=== PATIENT | female | born 1975 | race Caucasian/White ===

== ENCOUNTER 2016-09-23 20:29 | Emergency (ER) | payer OTHER ==
[2016-09-23 20:53] VITALS: BP 115/90; TEMP 98.1; BMI 29.7
--- NOTE | 2016-09-23 21:14 | PDOC ---
History of Present Illness - General Chief Complaint: Cold Symptoms Stated Complaint: COUGH/FEVER Time Seen by Provider: 09/23/16 21:08 History Source: Patient Exam Limitations: No Limitations - History of Present Illness Initial Comments: CHIEF COMPLAINT: 41 y/o afebrile female with PMH uterine fibroids c/o cough since yesterday. HISTORY OF PRESENT ILLNESS: The patient states she's had a dry cough since yesterday morning. She sometimes coughs so hard she throws up. She also admits to tactile fever last night for which she took tylenol. She admits when she coughs her chest and back hurts. She denies sore throat, runny nose, SOB, abd pain, diarrhea, constipation, leg pain, recent travel, smoking. She admits she is having a total hysterectomy soon and is currently on injections preventing a period. Vital signs on arrival are within normal limits. REVIEW OF SYSTEMS: GENERAL/CONSTITUTIONAL: +tactile fever. No weakness. No weight change. HEAD, EYES, EARS, NOSE AND THROAT: No change in vision. No ear pain or discharge. No sore throat. CARDIOVASCULAR: +post tussive chest pain. No SOB RESPIRATORY: +dry cough with post tussive vomiting. No wheezing or hemoptysis. GASTROINTESTINAL: No abd pain, diarrhea, constipation. GENITOURINARY: No dysuria, frequency, or change in urination. MUSCULOSKELETAL: No joint or muscle swelling or pain. No neck or back pain. SKIN: No rash or easy bruising. NEUROLOGIC: No headache, vertigo, loss of consciousness, or loss of sensation. PHYSICAL EXAM: GENERAL: The patient is awake, alert, and fully oriented, in no acute distress. She has a persistent dry cough. HEAD: Normal with no signs of trauma. ENT: Pupils equal, round and reactive to light, extraocular movements intact, sclera anicteric, conjunctiva clear. Neck supple. LUNGS: Clear to auscultation bilaterally. Normal excursion. No respiratory distress or use of accessory muscles. CV: RRR, S1/S2, no MRG. Cap refill < 2 sec. ABDOMEN: Soft, non-distended, non-tender even to deep palpation, no hepatomegaly or splenomegaly, no masses. EXTREMITIES: Normal range of motion, no edema. NEUROLOGICAL: Normal speech, normal gait. CN II-XII grossly intact. PSYCH: Normal mood, normal affect. SKIN: Warm, dry, normal turgor, no rashes or lesions noted. Past History - Past Medical History Allergies/Adverse Reactions: Allergies Allergy/AdvReac Type Severity Reaction Status Date / Time No Known Allergies Allergy Verified 09/23/16 20:51 Home Medications: Ambulatory Orders Guaifenesin AC [Robitussin AC] 5 ml PO TID #50 ml MDD 20 09/23/16 Prednisone [Deltasone -] 40 mg PO DAILY #8 tablet 09/23/16 Thyroid Disease: No - Psycho/Social/Smoking Cessation Hx Anxiety: No Suicidal Ideation: No Smoking History: Never smoked Have you smoked in the past 12 months: No Information on smoking cessation initiated: No Hx Alcohol Use: No Drug/Substance Use Hx: No Substance Use Type: None *Physical Exam - Vital Signs Last Vital Signs Temp Pulse Resp BP Pulse Ox 98.1 F 96 H 18 115/90 100 09/23/16 20:51 09/23/16 20:51 09/23/16 20:51 09/23/16 20:51 09/23/16 20:51 Medical Decision Making - Medical Decision Making A/P: 41 y/o afebrile female with signs and symptoms of bronchitis. Plan is as follows: 1. Robitussin AC 2. CXR CXR IMPRESSION: No pneumonia The patient states she feels better after robitussin AC and has not been coughing and her heart rate has improved. Will d/c with a dx of bronchitis. Will send rx for 4 day course of prednisone and Robitussin AC for cough. Suggested she take motrin for pain. Also informed her the robitussin may cause drowsiness. The patient was instructed to return to the ER with any worsening or concerning symptoms. The patient verbalizes understanding of all instructions, has no further questions and is awaiting discharge. *DC/Admit/Observation/Transfer Diagnosis at time of Disposition: Cough, Bronchitis - Discharge Dispostion Disposition: HOME Condition at time of disposition: Good - Prescriptions Prescriptions: Prednisone [Deltasone -] 40 mg PO DAILY #8 tablet Guaifenesin AC [Robitussin AC] 5 ml PO TID #50 ml MDD 20 - Patient Instructions Printed Discharge Instructions: DI for Acute Bronchitis, DI for Cough -- Adult Additional Instructions: Discharge Instructions: -Take Motrin if needed for pain with food -2 prescriptions have been sent to your pharmacy; please take as prescribed; the cough medicine may may you drowsy -Return to the ER with any worsening or concerning symptoms. Instrucciones de conor: -[place] Motrin si es necesario para el dolor con la comida -2 recetas boss sido enviadas a garcia farmacia; Por favor tome leonel prescrito; El medicamento para la tos puede causar somnolencia -Vuelva a la zayra de emergencias con cualquier empeoramiento o sntomas relacionados. Print Language: TANZANIAN
[2016-09-23] MEDS ORDERED: guaiFENesin/CODEINE 10 ML UNIT-DOSE CUPS PO ONE (21:18)
[2016-09-23] MEDS ORDERED: guaiFENesin/CODEINE 5 ML UNIT-DOSE CUPS PO ONE ×2 (21:27→21:30)
[2016-09-23 21:47] VITALS: PULSE 80
--- NOTE | 2016-09-24 08:08 | PDOC ---
Patient Follow-up (Call Back) - Post ED Follow - Up Condition at time of discharge: Good Disposition at time of original discharge: HOME Reason for Call Back: Radiology (?nodulular density to posterior aspect of heart as per radiology. Will need rpt CXR and if finding still present, will need chest CT as out-pt Called and l/m for pt to call back)
--- NOTE | 2016-09-25 14:50 | PDOC ---
Patient Follow-up (Call Back) - Post ED Follow - Up Condition at time of discharge: Good Disposition at time of original discharge: HOME Reason for Call Back: Radiology (Called pt back today and left message for pt to call back)
== END 2016-09-23 21:56 | disposition home or self-care (01) ==
LOC: JERFT 20:29
DX: J40 Bronchitis, not specified as acute or chronic (principal)
CPT/HCPCS: 71020-TC; 99281-25

== ENCOUNTER 2016-09-27 19:52 | Emergency (ER) | payer OTHER ==
[2016-09-27 20:03] VITALS: BP 127/65; PULSE 89; TEMP 98.2
[2016-09-27] MEDS ORDERED: guaiFENesin/D-METHORPHAN HB 10 ML UNIT-DOSE CUPS PO ONE (20:55)
--- NOTE | 2016-09-27 20:55 | PDOC ---
History of Present Illness - General Chief Complaint: Respiratory Stated Complaint: COUGH Time Seen by Provider: 09/27/16 20:16 - History of Present Illness Initial Comments: 09/27/16 21:20 CHIEF COMPLAINT: cough HISTORY OF PRESENT ILLNESS: 41 yo F with hx of uterine fibroids presents to [facility] with coughing x 6 days. Patient reports that she was seen here 3 days ago but her coughing has not improved. Per patient chart, patient was discharged with Robitussin AC and Prenisolone. PAST MEDICAL HISTORY: Denies past medical history FAMILY HISTORY: Denies SOCIAL HISTORY: Denies tobacco, alcohol, illicit drug use. SURGICAL HISTORY: Denies ALLERGIES: No known drug allergies REVIEW OF SYSTEMS General/Constitutional: Denies fever or chills. Denies weakness, weight change. HEENT: Denies change in vision. Denies ear pain or discharge. Denies sore throat. Cardiovascular: Denies chest pain or shortness of breath. Respiratory: Cough x 6 days. Denies wheezing, or hemoptysis. Gastrointestinal: Denies nausea, vomiting, diarrhea or constipation. Denies rectal bleeding. PHYSICAL EXAM General Appearance: Well-appearing, appropriately dressed. No apparent distress. HEENT: EOMI, PERRLA, normal ENT inspection, normal voice, TMs normal, pharynx normal. No conjunctival pallor. No photophobia, scleral icterus. Respiratory/Chest: Lungs CTAB. Cardiovascular: RRR. S1, S2. Musculoskeletal/Extremities: Normal inspection. FROM of all extremities, normal capillary refill. Pelvis Stable. No CVA tenderness. No tenderness to extremities, pedal edema, swelling, erythema or deformity. Integumentary: Appropriate color, dry, warm. No cyanosis, erythema, jaundice or rash Neurologic: news reporter II-XII intact. Fully oriented, alert. Appropriate mood/affect. Motor strength 5/5. No appreciable EOM palsy, facial droop or sensory deficit. Past History - Past Medical History Allergies/Adverse Reactions: Allergies Allergy/AdvReac Type Severity Reaction Status Date / Time No Known Allergies Allergy Verified 09/27/16 20:03 Home Medications: Ambulatory Orders Guaifenesin AC [Robitussin AC] 5 ml PO TID #50 ml MDD 20 09/23/16 Prednisone [Deltasone -] 40 mg PO DAILY #8 tablet 09/23/16 Azithromycin [Zithromax Tri-Usama (3 DAYS) -] 500 mg PO DAILY #3 tablet 09/27/16 Thyroid Disease: No - Psycho/Social/Smoking Cessation Hx Anxiety: No Suicidal Ideation: No Smoking History: Never smoked Have you smoked in the past 12 months: No Hx Alcohol Use: No Drug/Substance Use Hx: No Substance Use Type: None *Physical Exam - Vital Signs Last Vital Signs Temp Pulse Resp BP Pulse Ox 98.2 F 89 18 127/65 100 09/27/16 20:00 09/27/16 20:00 09/27/16 20:00 09/27/16 20:00 09/27/16 20:00 ED Treatment Course - RADIOLOGY Radiology Studies Ordered: Category Date Time Status CHEST PA & LAT [RAD] Stat Radiology 09/27/16 20:21 Ordered Medical Decision Making - Medical Decision Making 09/27/16 21:44 41 yo F with hx of uterine fibroids presents to fast track with persistent coughing x 6 days. Patient was called twice with no response regarding positive nodule finding on CXR from last visit. Repeat chest x-ray showed no evidence of nodule. Outpatient CT is recommended for further evaluation of possibe lung nodules. Due to prolonged course of persistent coughing, will treat with antibiotics. -Azithromycin sent to pharm Advised patient to f/u with pulmonology and for CT. Advised patient to take medications as prescribed and of signs and symptoms for return to ER; patient verbalized understanding and agrees to plan. *DC/Admit/Observation/Transfer Diagnosis at time of Disposition: Bronchitis - Discharge Dispostion Disposition: HOME Condition at time of disposition: Stable Admit: No - Prescriptions Prescriptions: Azithromycin [Zithromax Tri-Usama (3 DAYS) -] 500 mg PO DAILY #3 tablet - Referrals Referrals: Aaron Deleon MD, [Staff Physician] - - Patient Instructions Printed Discharge Instructions: DI for Acute Bronchitis Additional Instructions: Please take antibiotics as prescribed and complete the entire course of antibiotics. Please continue taking the other medications that were prescribed to your previously. You must follow up with pulmonology for a CT scan this week. If you develop fever that does not go away with Motrin, persistent vomiting, diarrhea, or any new or worsening symptoms, please return to the ER. Por favor, tome los antibiticos segn lo prescrito y complete el curso completo de los antibiticos. Por favor contine tomando los otros medicamentos que le fueron recetados previamente. Debe hacer un seguimiento de la neumologa para luis enrique tomografa computarizada esta semana. Si usted desarrolla fiebre que no se daisy con Motrin, vmitos persistentes, diarrea, o cualquier nuevo o empeoramiento de los sntomas, por favor regrese a la zayra de emergencias.
[2016-09-27] MEDS ORDERED: guaiFENesin/D-METHORPHAN HB 10 ML UNIT-DOSE CUPS ONE (20:58)
== END 2016-09-27 22:14 | disposition home or self-care (01) ==
LOC: JERFT 19:52
DX: J40 Bronchitis, not specified as acute or chronic (principal)
CPT/HCPCS: 71020-TC; 99281-25

== ENCOUNTER 2017-05-19 11:23 | Emergency (ER) | payer OTHER ==
[2017-05-19 11:55] VITALS: BP 144/80; BMI 31.8
[2017-05-19] MEDS ORDERED: IBUPROFEN 400 MG TABLET (FP) PO ONE ×2 (12:23→12:32)
--- NOTE | 2017-05-19 12:23 | PDOC ---
History of Present Illness - General Chief Complaint: Sore Throat Stated Complaint: COLD SYMPTOMS Time Seen by Provider: 05/19/17 12:06 History Source: Patient Exam Limitations: No Limitations - History of Present Illness Initial Comments: CHIEF COMPLAINT: 41 y/o afebrile female c/o dry cough and sore throat x 5 days. HISTORY OF PRESENT ILLNESS: The patient states she hasn't been able to sleep because of the cough. She denies fever, chills, earache, runny nose, n/v/d, CP , SOB, abd pain. She has been taking dayquil for her symptoms. Past History - Past Medical History Allergies/Adverse Reactions: Allergies Allergy/AdvReac Type Severity Reaction Status Date / Time No Known Allergies Allergy Verified 05/19/17 11:51 Home Medications: Ambulatory Orders Guaifenesin [Adult Tussin Chest Congestion] 100 mg PO TID #100 ml 05/19/17 COPD: No Thyroid Disease: No - Immunization History Immunization Up to Date: Yes - Suicide/Smoking/Psychosocial Hx Smoking History: Never smoked Have you smoked in the past 12 months: No Hx Alcohol Use: No Drug/Substance Use Hx: No Substance Use Type: None Review of Systems - Review of Systems Able to Perform ROS?: Yes Constitutional: No: Chills, Fever HEENTM: Yes: Throat Pain, Difficulty Swallowing. No: Ear Pain, Ear Discharge, Nose Pain, Nose Congestion, Nose Bleeding, Throat Swelling, Mouth Pain Respiratory: Yes: Cough (dry cough). No: Shortness of Breath, Wheezing Cardiac (ROS): No: Chest Pain ABD/GI: No: Diarrhea, Nausea, Vomiting *Physical Exam - Vital Signs Last Vital Signs Temp Pulse Resp BP Pulse Ox 98.0 F 79 18 144/80 98 05/19/17 11:51 05/19/17 11:51 05/19/17 11:51 05/19/17 11:51 05/19/17 11:51 - Physical Exam Comments: 41 y/o afebrile female in NAD or obvious discomfort with persistent dry cough. General Appearance: Yes: Nourished, Appropriately Dressed, Obese HEENT: positive: EOMI, MICHELLE, Normal Voice, Pharyngeal Erythema, Tonsillar Erythema (1+ erythematous tonsils), Other (No trismus. Uvula midline. No soft/ hard palate deformities. No petechia.). negative: Muffled/Hoarse voice, Tonsillar Exudate, Nasal Congestion, Rhinorrhea Neck: positive: Lymphadenopathy (R), Lymphadenopathy (L) Respiratory/Chest: positive: Lungs Clear. negative: Respiratory Distress, Rales , Wheezing Cardiovascular: positive: Regular Rhythm, Regular Rate Medical Decision Making - Medical Decision Making A/P: 41 y/o female with dry cough and sore throat x 5 days. Patient is otherwise well appearing. Plan is as follows: 1. Rapid strep 2. PO motrin Rapid strep - negative will send rx for cough medicine Suggested supportive care measures and cough drops. Instructed her to return to the ER with any worsening or concerning symptoms. The patient verbalizes understanding of all instructions, has no further questions and is awaiting discharge. *DC/Admit/Observation/Transfer Diagnosis at time of Disposition: Cough, Common cold - Discharge Dispostion Disposition: HOME Condition at time of disposition: Good - Prescriptions Prescriptions: Guaifenesin [Adult Tussin Chest Congestion] 100 mg PO TID #100 ml - Referrals Referrals: Hemalatha Schultz [Primary Care Provider] - Call tomorrow - Patient Instructions Printed Discharge Instructions: DI for Cough -- Adult, DI for Common Cold Additional Instructions: Discharge Instructions: -Take cough medicine as prescribed -Take tylenol or motrin for throat pain -Gargle with warm salt water and eat soft/cold foods to help with throat pain -Sit up to sleep to help with cough -Use steam heat to help with cough -Follow up with your doctor within 1 week -Return to the ER with any worsening or concerning symptoms Instrucciones de descarga: -Kat medicina para la tos segn lo prescrito -[place] tylenol o motrin para el dolor de garg[place] -[place] con agua salada tibia y coma alimentos blandos / fros para aliviar el dolor de garganta. -Sintate a dormir para ayudar con la tos -Use calor de vapor para ayudar con la tos -Siga con garcia doctor dentro de 1 semana -Volver a la zayra de urgencias con cualquier empeoramiento o sntomas Print Language: JAPANESE - Post Discharge Activity
[2017-05-19 13:16] VITALS: PULSE 72; TEMP 99.3
== END 2017-05-19 13:24 | disposition home or self-care (01) ==
LOC: JERFT 11:23
DX: J00 Acute nasopharyngitis [common cold] (principal)
CPT/HCPCS: 87070; 87430; 99281-25

== ENCOUNTER 2017-05-27 22:42 | Observation (INO) | payer OTHER ==
[2017-05-27] MEDS ORDERED: SODIUM CHLORIDE 1,000 ML IV STA (23:44)
--- NOTE | 2017-05-27 23:54 | PDOC ---
History of Present Illness - General History Source: Patient Exam Limitations: No Limitations - History of Present Illness Initial Comments: 05/27/17 23:55 The patient is a 41 year old anxious, disheveled and amharic speaking female, with no significant past medical history who presents to the emergency department with possible overdose today around 9:00pm. The patients brother reports finding the patient on the floor crying around 10:00pm after drinking half a bottle of [facility] Cold + Flu, which contained acetaminophen and dextromethorphan. Brother is unsure of exact amount. Patient endorses in addition having about 6 glasses of whisky earlier tonight. Brother reports the patients sister recently passing away this past Sunday. She denies any complaints of pain upon ED arrival. She denies recent fevers, chills, headache or dizziness. She denies recent nausea, vomit, diarrhea or constipation. She denies recent dysuria, frequency, urgency or hematuria. She denies recent chest pain or shortness of breath. Allergies: NKA Past surgical history: None reported. Social history: Nonsmoker. Current drinker. <Phill Hennessy - Last Filed: 05/27/17 23:55> <Adrienne Bailon - Last Filed: 05/28/17 01:42> - General Chief Complaint: Suicidal Stated Complaint: OVERDOSE Time Seen by Provider: 05/27/17 23:30 Past History <Phill Hennessy - Last Filed: 05/27/17 23:55> - Past Medical History COPD: No Thyroid Disease: No - Immunization History Immunization Up to Date: Yes - Suicide/Smoking/Psychosocial Hx Smoking History: Never smoked Have you smoked in the past 12 months: No Information on smoking cessation initiated: No Hx Alcohol Use: No Drug/Substance Use Hx: No Substance Use Type: None <Adrienne Bailon - Last Filed: 05/28/17 01:42> - Past Medical History Allergies/Adverse Reactions: Allergies Allergy/AdvReac Type Severity Reaction Status Date / Time No Known Allergies Allergy Verified 05/19/17 11:51 Home Medications: Ambulatory Orders Guaifenesin [Adult Tussin Chest Congestion] 100 mg PO TID #100 ml 05/19/17 Review of Systems - Review of Systems Able to Perform ROS?: Yes Comments:: 05/27/17 23:55 GENERAL/CONSTITUTIONAL: No fever or chills. No weakness. HEAD, EYES, EARS, NOSE AND THROAT: No change in vision. No ear pain or discharge. No sore throat. CARDIOVASCULAR: No chest pain or shortness of breath. RESPIRATORY: No cough, wheezing, or hemoptysis. GASTROINTESTINAL: No nausea, vomiting, diarrhea or constipation. GENITOURINARY: No dysuria, frequency, or change in urination. MUSCULOSKELETAL: No joint or muscle swelling or pain. No neck or back pain. SKIN: No rash NEUROLOGIC: No headache, vertigo, loss of consciousness, or change in strength/ sensation. PSCYH: +suicide attempt. ENDOCRINE: No increased thirst. No abnormal weight change. HEMATOLOGIC/LYMPHATIC: No anemia, easy bleeding, or history of blood clots. ALLERGIC/IMMUNOLOGIC: No hives or skin allergy. <Phill Hennessy - Last Filed: 05/27/17 23:55> *Physical Exam - Vital Signs Last Vital Signs Temp Pulse Resp BP Pulse Ox 97 F L 114 H 20 181/106 95 05/27/17 22:53 05/27/17 22:53 05/27/17 22:53 05/27/17 22:53 05/27/17 22:53 - Physical Exam Comments: 05/27/17 23:55 GENERAL: Awake, alert, and fully oriented, disheveled and anxious appearing. Alcohol on breath. HEAD: No signs of trauma EYES: PERRLA, EOMI, sclera anicteric, conjunctiva clear ENT: Auricles normal inspection, hearing grossly normal, nares patent, oropharynx clear without exudates. Moist mucosa NECK: Normal ROM, supple, no lymphadenopathy, JVD, or masses LUNGS: Breath sounds equal, clear to auscultation bilaterally. No wheezes, and no crackles HEART: +Tachycardic. Regular rate and rhythm, normal S1 and S2, no murmurs, rubs or gallops ABDOMEN: Protuberant soft belly, nontender, normoactive bowel sounds. No guarding, no rebound. No masses EXTREMITIES: Normal range of motion, no edema. No clubbing or cyanosis. No cords, erythema, or tenderness NEUROLOGICAL: Cranial nerves II through XII grossly intact. Normal speech, normal gait SKIN: Warm, Dry, normal turgor, no rashes or lesions noted. <Phill Hennessy - Last Filed: 05/27/17 23:55> - Vital Signs Last Vital Signs Temp Pulse Resp BP Pulse Ox 97 F L 114 H 20 181/106 95 05/27/17 22:53 05/27/17 22:53 05/27/17 22:53 05/27/17 22:53 05/27/17 22:53 <Adrienne Bailon - Last Filed: 05/28/17 01:42> ED Treatment Course - LABORATORY CBC & Chemistry Diagram: 05/28/17 00:06 05/28/17 00:06 <Adrienne Bailon - Last Filed: 05/28/17 01:42> Medical Decision Making - Medical Decision Making 05/28/17 01:24 41-year-old female is grieving the of her sister last Sunday and drank large amounts of whiskey and drank at least half a bottle of cold and flu solution containing acetaminophen, dextromethorphan, and doxylamine Spoke with poison control and there is concern for the following -Anticholinergic effects - rhabdomyolysis -Seizure activity -hallucinations - EKG changes QRS prolongation 05/28/17 01:37 first tylenol level is negative,salicylates negative, alcohol is 291 pt denies any actual plan to end her life, she denies that she wants to but she has not been able to sleep for 5 nights and states she just wants to not feel the pain of losing her sister and wants to be able to sleep pt admited to OBS telemetry <Adrienne Bailon - Last Filed: 05/28/17 01:42> *DC/Admit/Observation/Transfer - Attestations Scribe Attestion: 05/27/17 23:55 Documentation prepared by Phill Hennessy, acting as medical chemist for Adrienne Bailon MD/. <Phill Hennessy - Last Filed: 05/27/17 23:55> - Discharge Dispostion Admit: Yes <Adrienne Bailon - Last Filed: 05/28/17 01:42> Diagnosis at time of Disposition: Overdose Qualifiers: Encounter type: initial encounter Injury intent: undetermined intent Qualified Code(s): T50.904A - Poisoning by unspecified drugs, medicaments and biological substances, undetermined, initial encounter Alcohol intoxication Qualifiers: Complication of substance-induced condition: uncomplicated Qualified Code(s): F10.920 - Alcohol use, unspecified with intoxication, uncomplicated - Referrals - Patient Instructions - Post Discharge Activity Forms/Work/School Notes: My Personal Safety Plan
[2017-05-28 00:27] LABS: BASO % 1.3 % (0-2.0); EOS % 1.5 % (0-4.5); HEMATOCRIT 41.2 % (32.4-45.2); HEMOGLOBIN 13.5 GM/dL (10.7-15.3); LYMPH % 14.2 % (8-40); MCH 28.8 pg (25.7-33.7); MCHC 32.7 g/dl (32.0-36.0); MEAN CELL VOLUME 88.2 fl (80-96); MEAN PLT VOLUME 9.7 fl (7.5-11.1); MONO % 3.3 % (3.8-10.2); NEUT % 79.7 % (42.8-82.8); PLATELET COUNT 272 K/MM3 (134-434); RBC 4.67 M/mm3 (3.60-5.2); WHITE BLOOD COUNT 7.8 K/mm3 (4.0-10.0)
[2017-05-28 00:29] LABS: ADD RBC MORPHOLOGY YES; ANISOCYTOSIS 3+
[2017-05-28 00:42] LABS: INR 1.07 (0.82-1.09); PROTHROMBIN TIME (PATIENT) 12.1 SEC (9.98-11.88)
[2017-05-28 00:46] LABS: ALCOHOL 292.6 mg/dl (0-5)
[2017-05-28 00:48] LABS: ALK PHOS 337 U/L (45-117); ANION GAP 15 (8-16); BILIRUBIN,TOTAL 0.2 mg/dL (0.2-1.0); BLOOD UREA NITROGEN 4 mg/dL (7-18); CHLORIDE 103 mmol/L (98-107); CO2 21 mmol/L (21-32); CREATININE 0.6 mg/dL (0.55-1.02); GLUCOSE,RANDOM 116 mg/dL (74-106); POTASSIUM 3.9 mmol/L (3.5-5.1); SGOT/AST 34 U/L (15-37); SGPT/ALT 69 U/L (12-78); SODIUM 139 mmol/L (136-145)
[2017-05-28 01:05] LABS: ACETAMINOPHEN < 11 ug/ml (10.0-30.0); SALICYLATE < 4.0 mg/dl (0.0-30.0)
--- NOTE | 2017-05-28 02:45 | HP ---
CHIEF COMPLAINT: possible overdose PCP: Antoine HISTORY OF PRESENT ILLNESS: This is a 41 year old female with no significant medical history who presented to the ED from home with brother who reports that patient took an unknown amount of [facility] brand cold and flu medicine. Pt states that she only took 2 medicine cups. The bottle is about 3/4 empty. The patient reports that she has had a cough for about 3 weeks and has had the bottle for a "while" and she has been taking it. She also drank about 6 glasses of whiskey. Pt denies attempting to harm herself, but states she "just wanted to be able to sleep." Pt's 36 year old sister last week suddenly and she has been anxious and sleeping poorly since. She states that she wants to go home, but is willing to stay until morning. ER course was notable for: (1) tylenol and ASA levels low (2) ETOH level 292 Recent Travel: pt denies PAST MEDICAL HISTORY: none known PAST SURGICAL HISTORY: none known Social History: Smoking: pt denies Alcohol: not a habitual drinker, has been drinking more since her sister's Drugs: pt denies Family History: sister age 36, PE Allergies No Known Allergies Allergy (Verified 05/19/17 11:51) HOME MEDICATIONS: 3 Medication Instructions Recorded Guaifenesin [Adult Tussin Chest 100 mg PO TID #100 ml 05/19/17 Congestion] REVIEW OF SYSTEMS CONSTITUTIONAL: Absent: fever, chills, diaphoresis, generalized weakness, malaise, loss of appetite, weight change HEENT: Absent: rhinorrhea, nasal congestion, throat pain, throat swelling, difficulty swallowing, mouth swelling, ear pain, eye pain, visual changes CARDIOVASCULAR: Absent: chest pain, syncope, palpitations, irregular heart rate, lightheadedness , peripheral edema RESPIRATORY: Present: cough Absent: shortness of breath, dyspnea with exertion, orthopnea, wheezing, stridor , hemoptysis GASTROINTESTINAL: Absent: abdominal pain, abdominal distension, nausea, vomiting, diarrhea, constipation, melena, hematochezia GENITOURINARY: Absent: dysuria, frequency, urgency, hesitancy, hematuria, flank pain, genital pain MUSCULOSKELETAL: Absent: myalgia, arthralgia, joint swelling, back pain, neck pain SKIN: Absent: rash, itching, pallor HEMATOLOGIC/IMMUNOLOGIC: Absent: easy bleeding, easy bruising, lymphadenopathy, frequent infections ENDOCRINE: Absent: unexplained weight gain, unexplained weight loss, heat intolerance, cold intolerance NEUROLOGIC: Absent: headache, focal weakness or paresthesias, dizziness, unsteady gait, seizure, mental status changes, bladder or bowel incontinence PSYCHIATRIC: Present: anxiety Absent: depression, suicidal or homicidal ideation, hallucinations. PHYSICAL EXAMINATION Vital Signs - 24 hr 3 05/27/17 05/28/17 22:53 01:05 Temperature 97 F L Pulse Rate 114 H Pulse Rate [ 90 Right Apical] Respiratory 20 18 Rate Blood Pressure 181/106 Blood Pressure 141/75 [Right Arm] O2 Sat by Pulse 95 97 Oximetry (%) GENERAL: Awake, alert, and fully oriented, in no acute distress. HEAD: Normal with no signs of trauma. EYES: Pupils equal, round and reactive to light, extraocular movements intact, sclera anicteric, conjunctiva clear. No lid lag. EARS, NOSE, THROAT: Ears normal, nares patent, oropharynx clear without exudates. Moist mucous membranes. NECK: Normal range of motion, supple without lymphadenopathy, JVD, or masses. LUNGS: Breath sounds equal, clear to auscultation bilaterally. No wheezes, and no crackles. No accessory muscle use. HEART: Regular rate and rhythm, normal S1 and S2 without murmur, rub or gallop. ABDOMEN: Soft, nontender, not distended, normoactive bowel sounds, no guarding, no rebound, no masses. No hepatomegaly or splenomegaly. MUSCULOSKELETAL: Normal range of motion at all joints. No bony deformities or tenderness. No CVA tenderness. UPPER EXTREMITIES: 2+ pulses, warm, well-perfused. No cyanosis. No clubbing. No peripheral edema. LOWER EXTREMITIES: 2+ pulses, warm, well-perfused. No calf tenderness. No peripheral edema. NEUROLOGICAL: Cranial nerves II-XII intact. Normal speech. Gait not observed. PSYCHIATRIC: Cooperative. Good eye contact. Appropriate mood and affect. SKIN: Warm, dry, normal turgor, no rashes or lesions noted, normal capillary refill. Laboratory Results - last 24 hr 3 05/28/17 05/28/17 05/28/17 00:06 00:06 00:06 WBC 7.8 RBC 4.67 Hgb 13.5 Hct 41.2 MCV 88.2 MCH 28.8 MCHC 32.7 RDW 25.0 H Plt Count 272 MPV 9.7 Neutrophils % 79.7 Lymphocytes % 14.2 Monocytes % 3.3 L Eosinophils % 1.5 Basophils % 1.3 Anisocytosis 3+ PT with INR 12.10 H INR 1.07 Sodium 139 Potassium 3.9 Chloride 103 Carbon Dioxide 21 Anion Gap 15 BUN 4 L Creatinine 0.6 Creat Clearance w eGFR > 60 Random Glucose 116 H Calcium 9.0 Total Bilirubin 0.2 AST 34 ALT 69 Alkaline Phosphatase 337 H Creatine Kinase 76 Troponin I < 0.02 Total Protein 8.0 Albumin 4.0 Serum , Qual Negative Salicylates < 4.0 Acetaminophen < 11 Alcohol, Quantitative 292.6 H* ECG NSR Vent rate 94, QTC 475 low voltage QRS ASSESSMENT/PLAN: 41yF with no past medical history who presented to the ED with alcohol intoxication and possible nyquil overdose. Alcohol intoxication - ETOH level 292 - received 1L NS in ED, no slurred speech presently, no other s/s intoxication noted, but pt did not ambulate in my presence - cont to monitor Possible nyquil OD - tylenol level Less than 11, unlikely took enough for adverse effect - tylenol level repeated, called lab for results, test had been cancelled as tech believed it to be a duplicate order, will run test now. - monitor on tele - pt states she was not trying to harm self, denies suicidal ideation. - not intentional OD DVT PPX - low risk FEN - tolerating po, defer IVF - BMP in am - regular diet Dispo: pt requires further monitoring; admit for observation. Possible DC in am after reeval. Visit type - Emergency Visit Emergency Visit: Yes ED Registration Date: 05/27/17 Care time: The patient presented to the Emergency Department on the above date and was hospitalized for further evaluation of their emergent condition. - New Patient This patient is new to me today: Yes Date on this admission: 05/28/17 - Critical Care Critical Care patient: No Hospitalist Screening - Colonoscopy Questionnaire Colonoscopy Questionnaire: Colonoscopy Questionnaire - Patient: 50 - 75 years old and never had a screening colonoscopy: No History of colon or rectal polyps, or CA: No History of IBD, Crohn's disease or UC: No History of abdominal radiation therapy as a child: No - Relative: 1 with colon or rectal CA, or polyps at age 60 or younger: Unknown Colon or rectal CA diagnosed at age 45 or younger: Unknown Multiple relatives with colon or rectal CA: Unknown - Outcome: Screening Result: Negative Screen
[2017-05-28 06:03] LABS: URINE APPEARANCE CLEAR; URINE BILIRUBIN NEGATIVE (NEGATIVE); URINE BLOOD 3+ (NEGATIVE); URINE COLOR AMBER; URINE GLUCOSE (UA) NEGATIVE (NEGATIVE); URINE KETONE NEGATIVE (NEGATIVE); URINE LEUK ESTERASE NEGATIVE (NEGATIVE); URINE NITRITE NEGATIVE (NEGATIVE); URINE UROBILINOGEN NEGATIVE mg/dL (0.2-1.0)
[2017-05-28 06:05] LABS: URINE PROTEIN 1+ (NEGATIVE)
[2017-05-28 06:05] LABS: COCAINE, UR NEGATIVE ng/ml (CUTOFF=300); METHADONE, UR NEGATIVE ng/ml (CUTOFF=300); OPIATES, URI NEGATIVE ng/ml (CUTOFF=300); PHENCYCLIDINE,URINE NEGATIVE ng/ml (CUTOFF=25); URINE AMPHETAMINES NEGATIVE ng/ml (CUTOFF=500); URINE BARBITURATES NEGATIVE ng/ml (CUTOFF=200); URINE BENZODIAZEPINES NEGATIVE ng/ml (CUTOFF=200)
[2017-05-28 06:06] LABS: BASO % 0.9 % (0-2.0); EOS % 0.8 % (0-4.5); HEMOGLOBIN 11.8 GM/dL (10.7-15.3); LYMPH % 22.1 % (8-40); MCH 28.9 pg (25.7-33.7); MCHC 32.7 g/dl (32.0-36.0); MEAN CELL VOLUME 88.5 fl (80-96); MEAN PLT VOLUME 9.6 fl (7.5-11.1); MONO % 3.9 % (3.8-10.2); NEUT % 72.3 % (42.8-82.8); PLATELET COUNT 271 K/MM3 (134-434); RBC 4.07 M/mm3 (3.60-5.2); RDW 25.2 % (11.6-15.6); WHITE BLOOD COUNT 6.6 K/mm3 (4.0-10.0)
[2017-05-28 06:11] LABS: EPI CELLS RARE /HPF (FEW); URINE BACTERIA RARE /hpf (NONE SEEN); URINE MUCUS RARE
[2017-05-28 06:30] LABS: ANION GAP 13 (8-16); BLOOD UREA NITROGEN 3 mg/dL (7-18); CALCIUM 8.3 mg/dL (8.5-10.1); CHLORIDE 107 mmol/L (98-107); CO2 22 mmol/L (21-32); CREATININE 0.5 mg/dL (0.55-1.02); GLUCOSE,RANDOM 92 mg/dL (74-106); MAGNESIUM 2.3 mg/dL (1.8-2.4); POTASSIUM 3.6 mmol/L (3.5-5.1); SODIUM 142 mmol/L (136-145)
[2017-05-28 07:01] VITALS: BMI 32.3
[2017-05-28 07:30] LABS: ALBUMIN 3.6 g/dl (3.4-5.0); ALK PHOS 264 U/L (45-117); BILIRUBIN,DIRECT < 0.2 mg/dL (0.0-0.2); BILIRUBIN,TOTAL 0.2 mg/dL (0.2-1.0); SGOT/AST 27 U/L (15-37); SGPT/ALT 55 U/L (12-78); TOT PROT 6.7 g/dl (6.4-8.2)
--- NOTE | 2017-05-28 09:29 | PN ---
Progress Note, Physician - Objective Vital Signs: Vital Signs Temperature 98.5 F 05/28/17 06:40 Pulse Rate 77 05/28/17 06:40 Respiratory Rate 18 05/28/17 06:40 Blood Pressure 133/70 05/28/17 06:40 O2 Sat by Pulse Oximetry (%) 95 05/28/17 06:40 Labs: CBC, BMP 05/28/17 06:00 05/28/17 06:00 INR, PTT INR 1.07 (0.82-1.09) 05/28/17 00:06 Problem List - Problems (1) Abnormal CXR Assessment/Plan: REPEAT CXR EKG Code(s): R93.8 - ABNORMAL FINDINGS ON DIAGNOSTIC IMAGING OF BODY STRUCTURES (2) Alcohol intoxication Assessment/Plan: Alcohol intoxication - ETOH level 292 - received 1L NS in ED, no slurred speech presently, no other s/s intoxication noted, but pt did not ambulate in my presence - cont to monitor DVT PPX - low risk Code(s): F10.929 - ALCOHOL USE, UNSPECIFIED WITH INTOXICATION, UNSPECIFIED Qualifiers: Complication of substance-induced condition: uncomplicated Qualified Code(s ): F10.920 - Alcohol use, unspecified with intoxication, uncomplicated (3) Cough Assessment/Plan: PULMONARY CONSULT Code(s): R05 - COUGH (4) Overdose Assessment/Plan: Possible nyquil OD - tylenol level Less than 11, unlikely took enough for adverse effect - tylenol level repeated--LESS THAN 11 - pt states she was not trying to harm self, denies suicidal ideation. - not intentional OD Code(s): T50.901A - POISONING BY UNSP DRUG/MEDS/BIOL SUBST, ACCIDENTAL, INIT Qualifiers: Encounter type: initial encounter Injury intent: undetermined intent Qualified Code(s): T50.904A - Poisoning by unspecified drugs, medicaments and biological substances, undetermined, initial encounter
[2017-05-28 09:39] LABS: ANION GAP 14 (8-16); BLOOD UREA NITROGEN 4 mg/dL (7-18); CALCIUM 7.9 mg/dL (8.5-10.1); CHLORIDE 109 mmol/L (98-107); CO2 19 mmol/L (21-32); CREATININE 0.5 mg/dL (0.55-1.02); GLUCOSE,RANDOM 91 mg/dL (74-106); POTASSIUM 3.7 mmol/L (3.5-5.1); SODIUM 142 mmol/L (136-145)
[2017-05-28 10:05] VITALS: BP 139/78; PULSE 84; TEMP 98.3
--- NOTE | 2017-05-28 16:57 | EKG ---
Test Reason : Blood Pressure : / mmHG Vent. Rate : 081 BPM Atrial Rate : 081 BPM P-R Int : 130 ms QRS Dur : 092 ms QT Int : 388 ms P-R-T Axes : 001 041 001 degrees QTc Int : 450 ms NORMAL SINUS RHYTHM LOW VOLTAGE QRS CANNOT RULE OUT ANTERIOR INFARCT (CITED ON OR BEFORE 28-MAY-2017) ABNORMAL ECG WHEN COMPARED WITH ECG OF 28-MAY-2017 08:28, NO SIGNIFICANT CHANGE WAS FOUND Confirmed by YOLI MATOS MD ([id number]) on 05/28/2017 4:57:37 PM Referred By: Confirmed By:YOLI MATOS MD
--- NOTE | 2017-05-28 16:58 | EKG ---
Test Reason : Blood Pressure : / mmHG Vent. Rate : 083 BPM Atrial Rate : 083 BPM P-R Int : 120 ms QRS Dur : 090 ms QT Int : 382 ms P-R-T Axes : 027 026 002 degrees QTc Int : 448 ms NORMAL SINUS RHYTHM CANNOT RULE OUT ANTERIOR INFARCT , AGE UNDETERMINED ABNORMAL ECG WHEN COMPARED WITH ECG OF 28-MAY-2017 01:32, NO SIGNIFICANT CHANGE WAS FOUND Confirmed by YOLI MATOS MD ([id number]) on 05/28/2017 4:58:32 PM Referred By: Confirmed By:YOLI MATOS MD
--- NOTE | 2017-05-28 17:01 | EKG ---
Test Reason : Blood Pressure : / mmHG Vent. Rate : 094 BPM Atrial Rate : 094 BPM P-R Int : 142 ms QRS Dur : 086 ms QT Int : 380 ms P-R-T Axes : 047 031 006 degrees QTc Int : 475 ms NORMAL SINUS RHYTHM LOW VOLTAGE QRS BORDERLINE ECG NO PREVIOUS ECGS AVAILABLE Confirmed by YOLI MATOS MD ([id number]) on 05/28/2017 5:01:24 PM Referred By: Confirmed By:YOLI MATOS MD
== END 2017-05-28 17:23 | disposition home or self-care (01) ==
LOC: JER 22:42 → JERBED 05-28 01:42 → J4S 05-28 07:06
PROVIDERS: ADMIT Internal Medicine; ATTEND Family Medicine
PROC: 3E0337Z Introduction of Electrolytic and Water Balance Substance into Peripheral Vein, Percutaneous Approach (ICD-10-PCS; principal; 2017-05-28)
DX: T50.994A Poisoning by other drugs, medicaments and biological substances, undetermined, initial encounter (principal); F10.920 Alcohol use, unspecified with intoxication, uncomplicated; Y92.9 Unspecified place or not applicable; R93.8 Abnormal findings on diagnostic imaging of other specified body structures; R05 Cough
CPT/HCPCS: 36415; 71045-TC-FY; 71046-TC-FY; 80048; 80053; 80076; 80307; 81003; 81015; 82550; 83735; 84100; 84484; 84703; 85025; 85610; 93005; 93010; 96360; 99285-25; G0378

== ENCOUNTER 2019-04-12 00:52 | Emergency (ER) | payer OTHER ==
[2019-04-12 02:31] VITALS: TEMP 98.4; BMI 30.8
[2019-04-12] MEDS ORDERED: AZITHROMYCIN 500 MG TABLET PO ONE (03:29)
[2019-04-12] MEDS ORDERED: ACETAMINOPHEN 325 MG TABLET (FP) PO ONE (03:30)
--- NOTE | 2019-04-12 03:31 | PDOC ---
Attending Attestation - Resident Resident Name: Sabas Gonzáles - ED Attending Attestation I have performed the following: I have examined & evaluated the patient, The case was reviewed & discussed with the resident, I agree w/resident's findings & plan - HPI HPI: 04/12/19 06:43 Pt comes with cough and cold x 3 weeks. 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 She has no known ill contacts. She has been taking OTC meds with no improvement. - Physicial Exam PE: 04/12/19 06:44 Coarse breath sounds bilat Pt has a pulsox of 99% on RA even tho she is walking about. Rest of exam normal Agree with resident exam. - Medical Decision Making 04/12/19 03:40 Impression: atypical pneumonia 04/12/19 06:44 Flu negative 04/12/19 06:46 We will treat with zpak and tylenol. Pt can follow with her PMD
[2019-04-12] MEDS ORDERED: AZITHROMYCIN 250 MG TABLET ONE (03:35)
[2019-04-12] MEDS ORDERED: ACETAMINOPHEN 325 MG TABLET (FP) ONE (03:35)
--- NOTE | 2019-04-12 03:36 | PDOC ---
History of Present Illness - General Chief Complaint: Cold Symptoms Stated Complaint: COUGH Time Seen by Provider: 04/12/19 02:32 History Source: Patient Exam Limitations: No Limitations - History of Present Illness Initial Comments: 04/12/19 03:35 43F with no PMH who presents to the ER with complaints of 3 weeks of cough. She states that she's had 3 weeks of nonproductive cough with fever and chills. She admits to having pneumonia 2 years ago and states that this "feels just like it ". She denies CP, SOB, nausea, vomiting, abdominal pain, myalgias, dysuria. Past History - Past Medical History Allergies/Adverse Reactions: Allergies Allergy/AdvReac Type Severity Reaction Status Date / Time No Known Allergies Allergy Verified 05/19/17 11:51 Home Medications: Ambulatory Orders Guaifenesin [Adult Tussin Chest Congestion] 100 mg PO TID #100 ml 05/19/17 Azithromycin [Zithromax 250mg Tablets -] 250 mg PO UTDICT #6 tab 04/12/19 Anemia: Yes Asthma: No Cancer: No Cardiac Disorders: No CVA: No COPD: No DVT: No Dementia: No Diabetes: No Dialysis: No GI Disorders: No Disorders: No HTN: No Hypercholesterolemia: No Kidney Stones: No Liver Disease: No Psychiatric Problems: No Seizures: No Thyroid Disease: No Lung CA: No - Immunization History Immunization Up to Date: Yes - Psycho Social/Smoking Cessation Hx Smoking History: Never smoked Have you smoked in the past 12 months: No Information on smoking cessation initiated: No Hx Alcohol Use: No Drug/Substance Use Hx: No Substance Use Type: Alcohol Hx Substance Use Treatment: No Review of Systems - Review of Systems Able to Perform ROS?: Yes Comments:: 04/12/19 04:22 GENERAL/CONSTITUTIONAL: + for fever or chills. No weakness. HEAD, EYES, EARS, NOSE AND THROAT: No change in vision. No ear pain or discharge. No sore throat. CARDIOVASCULAR: No chest pain, palpitations, or lightheadedness. RESPIRATORY: + for cough. No wheezing, shortness of breath, or hemoptysis. GASTROINTESTINAL: No abdominal pain, nausea, vomiting, diarrhea, or constipation. GENITOURINARY: No dysuria, frequency, hematuria, or change in urination. MUSCULOSKELETAL: No joint or muscle swelling or pain. No neck or back pain. SKIN: No rash or lesions. NEUROLOGIC: No headache, numbness, tingling, focal weakness, loss of consciousness, or change in strength/sensation. *Physical Exam - Vital Signs Last Vital Signs Temp Pulse Resp BP Pulse Ox 98.4 F 115 H 20 126/74 99 04/12/19 02:15 04/12/19 02:15 04/12/19 02:15 04/12/19 02:15 04/12/19 02:15 - Physical Exam 04/12/19 04:23 GENERAL: Well developed, well nourished. Awake and alert. No acute distress. HEENT: Normocephalic, atraumatic. Hearing grossly normal. Moist mucous membranes. PERRLA, EOMI. No conjunctival pallor. Sclera are non-icteric. NECK: Supple. Full ROM. No JVD. CARDIOVASCULAR: Regular rate and rhythm. No murmurs, rubs, or gallops. PULMONARY: No evidence of respiratory distress. Decreased lung sounds in the RLL. No wheezing, rales or rhonchi. ABDOMINAL: Soft. Non-tender. Non-distended. No rebound or guarding. GENITOURINARY: No CVA tenderness bilaterally. MUSCULOSKELETAL: Normal range of motion at all joints. No bony deformities or tenderness. EXTREMITIES: No cyanosis. No clubbing. No edema. No calf tenderness or swelling. SKIN: Warm and dry. Normal capillary refill. No rashes. No jaundice. NEUROLOGICAL: Alert, awake, appropriate. Cranial nerves 2-12 grossly intact. Normal speech. Gait is normal without ataxia. PSYCHIATRIC: Cooperative. Good eye contact. Appropriate mood and affect. Medical Decision Making - Medical Decision Making 04/12/19 04:23 43F with a PMH of PNA 2 years ago presents with cough and fever fo 3 weeks. Pt refused labs and XR but accepted flu swab. Attending talked to pt regarding abx. Will d/c with abx and PCP f/u. Discharge - Discharge Information Problems reviewed: Yes Clinical Impression/Diagnosis: Cough Condition: Good Disposition: HOME - Admission No - Additional Discharge Information Prescriptions: Azithromycin [Zithromax 250mg Tablets -] 250 mg PO UTDICT #6 tab - Follow up/Referral Referrals: Hemalatha Schultz [Primary Care Provider] - - Patient Discharge Instructions Patient Printed Discharge Instructions: Pneumonia-Adult, DI for Viral Upper Respiratory Infection -- Adult Additional Instructions: Your ER visit is not complete until your follow up with your primary care physician. Please follow up with your primary care physician in 1-2 days. Please return to the ER if you have any signs or symptoms of chest pain, shortness of breath, uncontrollable fever, chills, nausea, vomiting, numbness, tingling, or weakness in any part of your body, changes in vision, or slurred speech. Please take your medications as prescribed. Please return to the ER if symptoms persist, worsen, or new symptoms arise. Lara visita a la zayra de emergencias no est completa hasta lara seguimiento con lara mdico de atencin primaria. Warren un seguimiento con lara mdico de atencin primaria en 1-2 singh. Regrese a la zayra de emergencias si tiene signos o sntomas de dolor en el pecho , falta de aliento, fiebre incontrolable, escalofros, nuseas, vmitos, entumecimiento, hormigueo o debilidad en alguna parte de lara cuerpo, cambios en la visin o dificultad para hablar. Por favor tome maurizio medicamentos leonel se los recetaron. Regrese a la zayra de emergencias si los sntomas persisten, empeoran o surgen nuevos sntomas. - Post Discharge Activity
[2019-04-12 05:26] VITALS: BP 122/70; PULSE 98
== END 2019-04-12 03:50 | disposition home or self-care (01) ==
LOC: JER 00:52
DX: R05 Cough (principal); Z86.2 Personal history of diseases of the blood and blood-forming organs and certain disorders involving the immune mechanism
CPT/HCPCS: 87804; 99282-25